=== PATIENT | male | born 1950 | race Caucasian/White ===

== ENCOUNTER 2016-09-13 09:21 | Inpatient (IN) ==
--- NOTE | 2016-09-12 22:00 | Discharge Summary ---
<Marilynn Barrios - Last Filed: 09/12/16 21:58> Date of Encounter: 09/12/16 - Discharge Diagnosis (1) Arthritis of knee, left Priority: Primary Status: Acute - Discharge Medications Home Medications: Aspirin Enteric Coated [Aspirin EC] 325 mg PO DAILY #21 tablet. 09/12/16 [Rx] OxyCODONE Immed Rel [Roxicodone 5 MG] 5 - 10 mg PO Q6HR PRN #40 tablet 09/12/16 [Rx] Loratadine [Allergy Relief] 10 mg PO DAILY 09/13/16 [History] Multivitamin [Multi-Day Vitamins] 1 each PO DAILY 09/13/16 [History] Pantoprazole Sodium [Protonix] 40 mg PO DAILY 09/13/16 [History] Allergies/Adverse Reactions: Allergies No Known Allergies Allergy (Unverified 08/30/16 14:28) Primary care physician: Matt Gutierrez - Patient Status Disposition: Home, Self-Care Condition: Good - Discharge Instructions Follow Up With: Matt Gutierrez, [Primary Care Provider] - - Hospital Course Hospital course: Mr. Lee is a 66 year old male - Time Spent with Patient Total time spent providing and/or coordinating discharge services: <Agus Michael Clark - Last Filed: 09/15/16 08:03> Date of Encounter: 09/15/16 Time of Encounter: 08:03 - Discharge Diagnosis (1) Arthritis of right knee Priority: Primary Status: Acute (2) Arthritis of knee, left Priority: Secondary Status: Acute (3) Obesity (BMI 35.0-39.9 without comorbidity) Priority: Secondary Status: Chronic Primary care physician: Matt Gutierrez - Patient Status Functional capacity at discharge: uses cane/walker Overall status at discharge: patient is progressing back to baseline - Hospital Course Hospital course: Mr. Lee is a 66 year old male The patient had an uneventful postoperative course. They received antibiotics and physical therapy and were discharged in stable condition. There will follow -up in the office in 2 weeks. Aspirin DVT prophylaxis - Time Spent with Patient Total time spent providing and/or coordinating discharge services:
[2016-09-13] MEDS ORDERED: Lidocaine -MPF 1% 2 ML VIAL ID ONE (09:52)
[2016-09-13] MEDS ORDERED: CeFAZolin Pre 2,000 MG/100 ML 2,000 MG/100 ML BAG IVPB ONE (09:52)
[2016-09-13] MEDS ORDERED: Ringers Solution, Lactated 1,000 ML IVC SCH (10:00)
[2016-09-13] MEDS ORDERED: Gabapentin 300 MG CAPSULE PO ONE (10:05)
[2016-09-13] MEDS ORDERED: Famotidine 20 MG/2 ML VIAL IVP ONE (10:05)
[2016-09-13] MEDS ORDERED: MethylPREDNISolone Acet(DEPOT) 80 MG/ML VIAL ONE (10:10)
[2016-09-13] MEDS ORDERED: Bupivacaine/EPI 1:200k 0.5%PF 10 ML VIAL ONE (10:10)
--- NOTE | 2016-09-13 10:24 | History & Physical Report ---
Date of Encounter: 09/13/16 Time of Encounter: 10:23 24 Hour HP Update - Instructions Instructions: If the History and Physical is less than 30 days old and was completed prior to A.M. admission and or procedure and has NOT been updated on calendar day of procedure please complete this update prior to performing procedure. - Update Patient reports changes in Medical Condition: No Changes in examination, assessment, or condition: No Changes in Medication: No Preop tests/diagnostics Reviewed: Yes Surgery Remains Indicated: Yes Consent for Planned Operative Procedure(s) Verified: Yes - Pre-Operative Checklist Preoperative Checklist Indicated: No Prophylactic Antibiotic Ordered: Yes Is VTE Prophylaxis Indicated?: Yes
[2016-09-13] MEDS ORDERED: *HR* Propofol 200 MG/20 ML VIAL IVP ONE (10:51)
[2016-09-13] MEDS ORDERED: *HR* Midazolam HCl 2 MG/2 ML VIAL ONE ×2 (10:51→11:27)
[2016-09-13] MEDS ORDERED: *HR* FentaNYL (PF) 100 MCG/2 ML VIAL ONE (10:51)
[2016-09-13] MEDS ORDERED: Lidocaine -MPF 2% 2 ML VIAL ONE (10:53)
--- NOTE | 2016-09-13 10:58 | Anesthesia Evaluation PreOp ---
Date of Encounter: 09/13/16 Time of Encounter: 11:00 - Past History Planned Operation: Left TKA, Rt Knee Injection Cardiac History: Denies any Significant Hx Pulmonary History: Former smoker PUBLIC HEALTH EDUCATOR History: Denies Any Significant HX Other Medical History: Other (Osteoarthritis) Anesthesia History: No Prior Anesthetic Complications Alcohol Use: none Drug use: none Medications and Allergies Aspirin Enteric Coated [Aspirin EC] 325 mg PO DAILY #21 tablet. 09/12/16 [Rx] OxyCODONE Immed Rel [Roxicodone 5 MG] 5 - 10 mg PO Q6HR PRN #40 tablet 09/12/16 [Rx] Loratadine [Allergy Relief] 10 mg PO DAILY 09/13/16 [History] Multivitamin [Multi-Day Vitamins] 1 each PO DAILY 09/13/16 [History] Pantoprazole Sodium [Protonix] 40 mg PO DAILY 09/13/16 [History] Allergies No Known Allergies Allergy (Unverified 08/30/16 14:28) - Meds/Allergy Pre-op Review Medications Reviewed: Yes Allergies Reviewed: Yes Beta Blockers on Current Med List: No Anesthesia Results - Labs Laboratory Tests 08/30/16 08/30/16 14:28 14:28 Hgb 14.1 Hct 43.3 Plt Count 277 Sodium 138 Potassium 3.9 BUN 15 Creatinine 0.97 Anesthesia Exam O2 Sat Height 1.8 m Height 1.8 m Height 1.8 m Weight 116.12 kg Weight 116.12 kg Weight 116.12 kg O2 Sat by Pulse Oximetry 95 Vital Signs Temp Pulse Resp BP Pulse Ox 97.6 F 65 18 138/93 95 09/13/16 10:23 09/13/16 10:23 09/13/16 10:23 09/13/16 10:23 09/13/16 10:23 Height: 5'11 Weight: 256 lbs NPO (# of Hours): MN Pain Scale: 0 - HEENT Pupil (Motor): Pupils equal, EOMI Mallampati: III Teeth: Edentulous Denture Type: Upper: Complete Oral Opening: Greater than 3 - PUBLIC HEALTH EDUCATOR LOC: Oriented PUBLIC HEALTH EDUCATOR Motor: Normal RUE, Normal LUE, Normal RLE, Normal LLE, Normal Face PUBLIC HEALTH EDUCATOR Sensory: Normal: RUE, LUE, RLE, LLE, Face - Cardiac Rhythm: Regular Murmur: None JVD: No Carotid Bruit: No - Pulmonary Breath Sounds: bilateral Clear Respiratory Effort: Symmetrical Anesthesia Assess/Plan ASA Score: 2 Modified [place] Scale for Level of Consciousness: Cooperative, oriented, and tranquil Anesthetic Plan: General, Regional Monitoring Plan: Standard Monitors Recovery Plan: PACU (Discussed GA and RA, agrees to proceed)
[2016-09-13] MEDS ORDERED: Tetracaine/PF 20 MG/2 ML AMPUL ONE (11:39)
[2016-09-13] MEDS ORDERED: Bupivacaine/Clonidine Syringe 1 EACH SYRINGE ONE (11:46)
[2016-09-13] MEDS ORDERED: Ondansetron 4 MG/2 ML VIAL IVP PRN ×2 (11:59→13:47)
[2016-09-13] MEDS ORDERED: *HR* HYDROmorphone (PF) 1 MG/ML SYRINGE IVP PRN (11:59)
--- NOTE | 2016-09-13 11:59 | Anesthesia Procedures ---
Date of Encounter: 09/13/16 Time of Encounter: 11:58 Procedures: Anesthesia - Nerve Block Procedure Date: 09/13/16 Time: 11:58 Allergies/Adv Reactions: nka Pre-op Diagnosis: left knee OA Surgical Procedure: left TKA Checklist: Correct Patient Identifier, Correct procedure, History checked Correct side: Left Blood Thinner: No Monitor Applied: EKG, BP, Pulse Oximetry Supplemental Oxygen via Nasal Cannula (L/min): 2 Sedation: Versed (mg): 4 Sedation: Fentanyl (mcg): 50 Indication: Post Op Analgesia Pre-op Neuro Deficits: No Block Type: Femoral, Other (iPACK) Catheter placed: No Sterile Technique: Yes Ultrasound used: Yes Anatomy identified: Yes Visual spread of Local: Yes Neuro Stimulation: Yes (femoral only) Nerve Stimulator Range: 0.2 - 0.4 mA Blood on Needle Aspiration: No Smooth Injection of Local: Yes Pain with Injection of Local: No Prep: Chlorhexadine Needle: 22 x 50 mm Stimuplex, 21 x 100 mm Stimuplex Local: 0.25% Bupivicaine w/Clonidine 20 mcg/cc, Tetracaine, Ropivacaine Volume (cc): 50 Number of Attempts: 1 Complications: None/effective block Vitals: Vital Signs/O2 Sat/Glucose, Most Recent Temp Pulse Resp BP Pulse Ox 97.6 F 68 16 132/100 92 09/13/16 10:23 09/13/16 11:52 09/13/16 11:52 09/13/16 11:52 09/13/16 11:52
[2016-09-13] MEDS ORDERED: Ketamine *HR* 500 MG/10 ML MDV ONE (12:08)
[2016-09-13] MEDS ORDERED: *HR* Magnesium Sulfate 1 GM/2 ML VIAL ONE (12:12)
[2016-09-13] MEDS ORDERED: Ketorolac 30 MG/ML VIAL ONE (12:13)
[2016-09-13] MEDS ORDERED: Dexamethasone 4 MG/ML VIAL ONE (12:14)
[2016-09-13] MEDS ORDERED: Ondansetron 4 MG/2 ML VIAL ONE (12:14)
--- NOTE | 2016-09-13 12:48 | Orthopedic Operative Note ---
Date of procedure: 09/13/16 Pre-op diagnosis: Bilateral knee arthritis Post-op diagnosis: same Procedure: Procedure: Left Total knee replacement, corticosteroid injection right knee. Estimated blood loss: 400 cc Hardware: Metal and polyethylene replacement. Arthrex Femur: 9 Tibia: 9 PS insert: 9 Patella: 40 Exam Under anesthesia: Significant varus alignment full flexion and extension. Procedural Notes: Grade 4 arthritic changes medial compartment and patellofemoral joint. Operative procedure: The patient was brought to the operating room and placed on the operating room table. After general anesthesia was administered the operative knee was examined. Findings were noted in the exam under anesthesia. Patient underwent a sterile injection into the right knee with a combination of bupivacaine and Depo-Medrol. The left operative extremity was prepped and draped in sterile surgical fashion. The patient received IV antibiotics prior to skin incision. A standard midline incision was made centered over the patella. The incision was made through the skin and subcutaneous tissue. A medial parapatellar tendon approach was performed. Care was taken to preserve tissue along the medial aspect of the patella. And to protect the patella tendon. The deep MCL was released off the medial tibia. The infra patella fat pad was excised. Knee was brought into flexion. Patient noted to have grade 4 arthritic changes medial compartment patellofemoral joint. The entry hole was made for the intramedullary femoral guide. The guide was seated in 6 degrees of valgus. Anterior cut was made followed by the distal cut. The ACL the PCL the medial and the lateral menisci were excised. The tibia was subluxed forward. The entry hole was made for the intramedullary tibial guide. Guide was seated to resect 2 mm off the more abnormal side. The knee was brought into flexion the distal femur was sized to a 9. The femoral guide was seated, the anterior cut was made followed by the posterior condylar cut, followed by the chamfer cuts. The finishing guide was seated the box cut was made and the lug holes were drilled. The tibia was sized to a 9, the tibial tray was seated and prepared with the large drill followed by the fin cutter. Trial reduction revealed full extension no varus valgus instability with the appropriate 9 PS Elise. The patella was everted and cut was made at the level of the insertion of the quadriceps and patella tendon. The patella was sized to a 40 the guide was seated and the lug holes are drilled. Trial reduction revealed excellent patella tracking. All trial components were removed all bony surfaces were irrigated. The tibia was cemented first followed by the femur. The 9 PS Elise was seated and the knee was brought into full extension. The patella was cemented and held in place with the patellar holding clamp. After the cement had hardened, the knee sat for 2 minutes with a Betadine saline solution. The knee was then irrigated out with 2 L of pulse irrigation. The extensor mechanism was closed with #2 FiberWire suture and #2 PDS suture. The subcutaneous tissue was then irrigated and closed deep with #1 PDS suture superficially with 0 PDS suture and skin was closed with skin sonya. The patient was then placed in a sterile dressing and a postoperative brace extubated and transferred to recovery room in stable condition. Anesthesia: GREGORIOA Surgeon: Agus Michael Condition: stable Disposition: PACU
[2016-09-13] MEDS ORDERED: Naloxone 0.4 MG/ML INJ IVP PRN (13:47)
[2016-09-13] MEDS ORDERED: Temazepam 15 MG CAPSULE PO PRN (13:47)
[2016-09-13] MEDS ORDERED: Sennosides 8.6 MG TABLET PO PRN (13:47)
[2016-09-13] MEDS ORDERED: MOM Conc 10 ML UD.LIQ PO PRN (13:47)
[2016-09-13] MEDS ORDERED: *HR* OxyCODONE Immed Rel 5 MG TABLET PO PRN (13:47)
[2016-09-13 13:48] LABS: Hematocrit 37.3 % (37.5-50.1); Hemoglobin 12.2 g/dL (12.9-16.9)
--- NOTE | 2016-09-13 14:16 | Anesthesia Evaluation Post Op ---
Date of Encounter: 09/13/16 Time of Encounter: 14:00 - Vital Signs Vital Signs: Vital Signs/O2 Sat/Glucose, Most Current Temp Pulse Resp BP Pulse Ox 09/13/16 14:02 97.5 F L 68 12 119/79 95 09/13/16 13:56 97.6 F 74 16 111/78 94 09/13/16 13:46 97.4 F L 74 16 109/76 94 09/13/16 13:36 70 15 117/86 93 09/13/16 13:26 78 16 134/90 95 09/13/16 13:16 97.7 F 70 16 109/80 94 09/13/16 11:52 68 16 132/100 92 09/13/16 11:39 64 18 118/89 97 09/13/16 10:23 97.6 F 65 18 138/93 95 - Lungs Lungs: Clear Ascult./Percussion - Airway Airway: Non-obstructed - Cardiovascular Regular Rate - Mental Status Mental Status: Alert & Oriented, Answers Appropriately - Pain Pain Scale: 0 - Nausea Vomiting Nausea Vomiting: Not Present - Hydration Hydration: Ice chips - Discharge PostOp Status: Transfer Patient to floor
[2016-09-13] MEDS: Ringers Solution, Lactated 1,000 ML IVC SCH (14:35)
[2016-09-13] MEDS ORDERED: ceFAZolin 2,000 MG in D5% in Water 100 ML IVPB SCH ×2 (16:00→20:00)
[2016-09-13] MEDS: *HR* Enoxaparin 30 MG/0.3 ML SYRINGE SQ SCH (17:12)
[2016-09-13] MEDS ORDERED: *HR* Enoxaparin 30 MG/0.3 ML SYRINGE SQ SCH (18:00)
[2016-09-13] MEDS: ceFAZolin 2,000 MG in D5% in Water 100 ML IVPB SCH (21:53)
[2016-09-13] MEDS: *HR* OxyCODONE Immed Rel 5 MG TABLET PO PRN (21:53)
[2016-09-14] MEDS: ceFAZolin 2,000 MG in D5% in Water 100 ML IVPB SCH (04:35)
[2016-09-14 06:05] LABS: Hematocrit 35.8 % (37.5-50.1); Hemoglobin 11.8 g/dL (12.9-16.9)
[2016-09-14 06:25] LABS: BUN/Creatinine Ratio 18 (6-26); Blood Urea Nitrogen 17 mg/dL (8-26); Calcium 8.7 mg/dL (8.6-10.8); Carbon Dioxide 25 mEq/L (19-29); Chloride 101 mEq/L (98-109); Glucose 183 mg/dL (70-99); Osmolality,Calculated 286 (280-300); Potassium 4.2 mEq/L (3.5-4.5); Sodium 135 mEq/L (136-145); eGFR For African Americans > 60 (> 60); eGFR For Non-African Americans > 60 (> 60)
--- NOTE | 2016-09-14 06:40 | Orthopedics Progress Note ---
Date of Encounter: 09/14/16 Time of Encounter: 06:39 - Assessment and Plan (1) Arthritis of right knee Current Visit: Yes Status: Acute (2) Arthritis of knee, left Current Visit: Yes Status: Acute (3) Obesity (BMI 35.0-39.9 without comorbidity) Current Visit: Yes Status: Chronic Subjective Interval history: Patient was seen this morning doing well without complaints. Afebrile vital signs stable. Operative extremity: Neurovascularly intact Dressing clean dry and intact Calves nontender Assessment and plan: Continue with postoperative care Hematocrit 35 Objective Vital signs: Vital Signs Temp Pulse Resp BP Pulse Ox 09/14/16 04:34 98.1 F 82 16 123/78 95 09/14/16 00:54 97.8 F 76 16 123/83 96 09/13/16 19:26 97.5 F L 79 16 125/78 97 09/13/16 17:05 98.1 F 70 16 121/76 98 09/13/16 16:06 97.4 F L 68 14 114/69 97 09/13/16 15:16 97.5 F L 63 16 120/81 97 09/13/16 14:02 97.5 F L 68 12 119/79 95 09/13/16 13:56 97.6 F 74 16 111/78 94 09/13/16 13:46 97.4 F L 74 16 109/76 94 09/13/16 13:36 70 15 117/86 93 09/13/16 13:26 78 16 134/90 95 09/13/16 13:16 97.7 F 70 16 109/80 94 09/13/16 11:52 68 16 132/100 92 09/13/16 11:39 64 18 118/89 97 09/13/16 10:23 97.6 F 65 18 138/93 95 Intake and Output 09/13/16 09/13/16 09/14/16 15:59 23:59 07:59 Intake Total 100 / 100 800 / 800 Output Total 400 / 400 1275 / 1275 Balance -300 / -300 -475 / -475 Intake: IV Fluids 100 / 100 100 / 100 Ancef Premix 2,000 MG/100 100 / 100 ML 2,000 mg In 100 ml @ 200 mls/hr IVPB PREOP ONE Rx#:[id number] Ancef 2,000 MG In 100 / 100 Dextrose 5% 100 ML @ 200 mls/hr IVPB Q8H [facility] Rx#: [id number] Oral 700 / 700 Output: Urine 0 / 0 1275 / 1275 Estimated Blood Loss 400 / 400 Other: Weight 116.12 kg 125 kg Patient Weight 09/14/16 23:59 Weight 125 kg - Labs CBC & BMP: 09/14/16 05:32 09/14/16 05:32 Labs: Abnormal lab results Hgb 11.8 g/dL (12.9-16.9) L 09/14/16 05:32 Hct 35.8 % (37.5-50.1) L 09/14/16 05:32 Sodium 135 mEq/L (136-145) L 09/14/16 05:32 Glucose 183 mg/dL (70-99) H 09/14/16 05:32 - VTE Documentation of Mechanical Device: Venous foot pump, device Consult Discharge Plan - Plan Referrals: Matt Gutierrez, DO [Primary Care Provider] -
[2016-09-14] MEDS: *HR* Enoxaparin 30 MG/0.3 ML SYRINGE SQ SCH ×2 (06:48→17:00)
[2016-09-14] MEDS: *HR* OxyCODONE Immed Rel 5 MG TABLET PO PRN ×3 (09:32→19:37)
[2016-09-14] MEDS: Loratadine 10 MG TABLET PO SCH (09:32)
[2016-09-14] MEDS: Multivit/Ca/Min/Fe/FA 1 TAB TABLET PO SCH (09:32)
[2016-09-14] MEDS: Ringers Solution, Lactated 1,000 ML IVC SCH (09:43)
[2016-09-14] MEDS ORDERED: Acetaminophen 325 MG TABLET PO PRN (16:16)
[2016-09-14] MEDS: *HR* HYDROmorphone (PF) 1 MG/ML SYRINGE IVP PRN (23:58)
[2016-09-15] MEDS: *HR* OxyCODONE Immed Rel 5 MG TABLET PO PRN ×5 (04:17→23:25)
[2016-09-15] MEDS: *HR* Enoxaparin 30 MG/0.3 ML SYRINGE SQ SCH ×2 (05:49→17:14)
[2016-09-15 06:30] LABS: Hemoglobin 10.9 g/dL (12.9-16.9)
[2016-09-15 06:44] LABS: BUN/Creatinine Ratio 22 (6-26); Blood Urea Nitrogen 20 mg/dL (8-26); Calcium 8.5 mg/dL (8.6-10.8); Carbon Dioxide 25 mEq/L (19-29); Chloride 98 mEq/L (98-109); Glucose 129 mg/dL (70-99); Osmolality,Calculated 280 (280-300); Potassium 3.9 mEq/L (3.5-4.5); Sodium 133 mEq/L (136-145); eGFR For African Americans > 60 (> 60); eGFR For Non-African Americans > 60 (> 60)
--- NOTE | 2016-09-15 08:04 | Orthopedics Progress Note ---
Date of Encounter: 09/15/16 Time of Encounter: 08:04 - Assessment and Plan (1) Arthritis of right knee Current Visit: Yes Status: Acute (2) Arthritis of knee, left Current Visit: Yes Status: Acute (3) Obesity (BMI 35.0-39.9 without comorbidity) Current Visit: Yes Status: Chronic Subjective Interval history: Patient was seen this morning doing well without complaints. Afebrile vital signs stable. Operative extremity: Neurovascularly intact Dressing clean dry and intact Calves nontender Assessment and plan: Continue with postoperative care Hematocrit 33 discharged today Objective Vital signs: Vital Signs Temp Pulse Resp BP Pulse Ox 09/15/16 06:27 98.4 F 83 16 127/84 97 09/15/16 04:23 98.6 F 86 18 121/77 95 09/15/16 00:01 98.8 F 83 16 145/74 93 09/14/16 18:13 98.2 F 73 18 129/78 93 09/14/16 15:53 98.2 F 79 16 128/81 94 09/14/16 11:16 97.8 F 71 14 126/81 94 Intake and Output 09/14/16 09/15/16 09/15/16 23:59 07:59 15:59 Output Total 250 / 250 Balance -250 / -250 Output: Urine 250 / 250 Other: # Voids 1 1 # Bowel Movements 1 - Labs CBC & BMP: 09/15/16 06:12 09/15/16 06:12 Labs: Abnormal lab results Hgb 10.9 g/dL (12.9-16.9) L 09/15/16 06:12 Hct 33.0 % (37.5-50.1) L 09/15/16 06:12 Sodium 133 mEq/L (136-145) L 09/15/16 06:12 Glucose 129 mg/dL (70-99) H 09/15/16 06:12 Calcium 8.5 mg/dL (8.6-10.8) L 09/15/16 06:12 - VTE Documentation of Mechanical Device: Venous foot pump, device Consult Discharge Plan - Plan Referrals: Matt Gutierrez, DO [Primary Care Provider] -
[2016-09-15] MEDS: Loratadine 10 MG TABLET PO SCH (08:14)
[2016-09-15] MEDS: Multivit/Ca/Min/Fe/FA 1 TAB TABLET PO SCH (08:14)
[2016-09-15] MEDS: *HR* HYDROmorphone (PF) 1 MG/ML SYRINGE IVP PRN ×2 (11:46→21:16)
[2016-09-16] MEDS: *HR* HYDROmorphone (PF) 1 MG/ML SYRINGE IVP PRN ×2 (02:30→08:06)
[2016-09-16] MEDS: *HR* Enoxaparin 30 MG/0.3 ML SYRINGE SQ SCH (05:08)
[2016-09-16] MEDS: *HR* OxyCODONE Immed Rel 5 MG TABLET PO PRN ×2 (05:08→12:16)
--- NOTE | 2016-09-16 07:32 | Orthopedics Progress Note ---
Date of Encounter: 09/16/16 Time of Encounter: 07:31 - Assessment and Plan (1) Arthritis of right knee Current Visit: Yes Status: Acute (2) Arthritis of knee, left Current Visit: Yes Status: Acute (3) Obesity (BMI 35.0-39.9 without comorbidity) Current Visit: Yes Status: Chronic Subjective Interval history: Patient was seen this morning doing well without complaints. Afebrile vital signs stable. Operative extremity: Neurovascularly intact Dressing clean dry and intact Calves nontender Assessment and plan: Continue with postoperative care Discharge held secondary to pain doing better this morning will discharge today Objective Vital signs: Vital Signs Temp Pulse Resp BP Pulse Ox 09/16/16 06:39 98.4 F 91 16 138/84 95 09/15/16 23:11 98.4 F 97 17 137/89 95 09/15/16 19:17 99.4 F 95 17 133/79 90 09/15/16 10:00 98.5 F 87 16 129/76 96 Intake and Output 09/15/16 09/15/16 09/16/16 15:59 23:59 07:59 Output Total 500 / 500 500 / 500 1200 / 1200 Balance -500 / -500 -500 / -500 -1200 / -1200 Output: Urine 500 / 500 500 / 500 1200 / 1200 Other: # Voids 1 - Labs CBC & BMP: 09/15/16 06:12 09/15/16 06:12 Labs: Abnormal lab results Hgb 10.9 g/dL (12.9-16.9) L 09/15/16 06:12 Hct 33.0 % (37.5-50.1) L 09/15/16 06:12 Sodium 133 mEq/L (136-145) L 09/15/16 06:12 Glucose 129 mg/dL (70-99) H 09/15/16 06:12 Calcium 8.5 mg/dL (8.6-10.8) L 09/15/16 06:12 - VTE Documentation of Mechanical Device: Venous foot pump, device Consult Discharge Plan - Plan Referrals: Agus Michael MD [Partnered Physician] - 10/12/16 9:50 am Marilynn Barrios PAC [Physician Pathology Technician] - 09/24/16 9:30 am Matt Gutierrez DO [Primary Care Provider] -
[2016-09-16] MEDS: Multivit/Ca/Min/Fe/FA 1 TAB TABLET PO SCH (08:06)
[2016-09-16] MEDS: Loratadine 10 MG TABLET PO SCH (08:06)
[2016-09-16 11:09] VITALS: BP 153/94
== END 2016-09-16 13:03 | disposition home or self-care (01) | DRG 470 ==
LOC: SAMDAY 09:21 → 3NENU 13:48
PROVIDERS: ADMIT Orthopaedic Surgery; ATTEND Orthopaedic Surgery